=== PATIENT | female | born 1975 | race Two or more races ===

== ENCOUNTER 2016-11-04 18:45 | Observation (INO) | payer BC ==
[~2016-11-04] VITALS: Ht 170.2 cm; Wt 94.1 kg
[~2016-11-04 18:45] MED LIST: NORCO 5/3251 TABLET PO
[2016-11-04 19:48] LABS: BASOPHIL COUNT 0.1 K/uL (0-0.1); EOSINOPHIL COUNT 0.6 K/uL (0-0.3); HEMATOCRIT 39.5 % (36.0-46.0); IMMATURE GRANULOCYTE (%) 0.2 % (0.0-0.7); INSTRUMENT ABS NEUTROPHIL CT 4.3 K/uL; LYMPHOCYTE COUNT 3.5 K/uL (1.0-2.8); MCH 24.4 PG (29.0-34.0); MCHC 30.6 G/DL (30.0-36.0); MCV 79.6 FL (83-99); MEAN PLAT.VOLUME 10.4 uM^3 (9.5-12.4); MONOCYTE (%) 8.6 % (3-12); MONOCYTE COUNT 0.8 K/uL (0-0.8); NEUTROPHIL (%) 46.9 % (45-76); NEUTROPHIL COUNT 4.3 K/uL (1.8-6.4); PLATELET COUNT 288 K/uL (156-360); RBC DIS.WIDTH-CV 15.4 % (11.8-14.6); RBC DIS.WIDTH-SD 44.3 % (39-53); RED BLOOD COUNT 4.96 M/uL (3.80-5.20); WHITE BLOOD COUNT 9.2 K/uL (4.1-10.2)
[2016-11-04 19:57] LABS: CHLORIDE 107 mEq/L (99-109); POTASSIUM 3.9 mEq/L (3.7-5.4); SODIUM 138 mEq/L (136-147)
[2016-11-04 19:59] LABS: GLUCOSE 111 mg/dL (70-99)
[2016-11-04 20:00] LABS: ANION GAP 9 MEQ/L (2-14)
[2016-11-04 20:03] LABS: GFR ESTIMATE (CALCULATED) > 59 mL/min/
[2016-11-04 20:04] LABS: UREA NITROGEN (BUN) 10 mg/dL (9-23)
[2016-11-04] MEDS ORDERED: VENTOLIN HFA18 GM IH (22:18)
[2016-11-04] MEDS ORDERED: NEXIUM20 MG PO (22:19)
[2016-11-04] MEDS ORDERED: FERROUS SULFAT325 MG PO (22:19)
[2016-11-04] MEDS ORDERED: HAIR, SKIN & N1 EAC1 PO (22:19)
[2016-11-04] MEDS ORDERED: ASCORBIC ACID500 M3 PO (22:20)
[2016-11-05 01:00] VITALS: BP 118/72
[2016-11-05 01:32] LABS: ADD MIUA? YES; BILIRUBIN NEGATIVE; BLOOD MODERATE; COLOR COLORLESS ((YELLOW)); GLUCOSE (STRIP) NEGATIVE; KETONES NEGATIVE; LEUKOCYTES NEGATIVE; NITRITE NEGATIVE; PROTEIN (STRIP) NEGATIVE; SPECIFIC GRAVITY 1.004 (1.000-1.030); UROBILINOGEN 0.2 MG/DL (0.2-1.0)
[2016-11-05 01:35] LABS: BACTERIA RARE /HPF; EPITHELIAL CELLS RARE /HPF; MUCUS NONE SEEN /LPF; RED BLOOD CELLS 0-5 /HPF (0-5); UCUL ADDED? NO; WHITE BLOOD CELLS 0-5 /HPF (0-5)
[2016-11-05 03:30] LABS: AMPHETAMINES QUANT VALUE 0 NG/ML; BARBITUATES QUANT VALUE 0 NG/ML; BENZODIAZEPINES QUANT VALUE 0 NG/ML; BENZODIAZEPINES, URINE SCREEN Negative (200 ng/mL); MARIJUANA QUANT VALUE 0 NG/ML; OPIATES QUANTITATIVE VALUE 0 NG/ML; PHENCYCLIDINE QUANT VALUE 0 NG/ML
[2016-11-05 03:38] VITALS: BP 116/68
[2016-11-05 07:08] VITALS: BP 103/66
[2016-11-05] MEDS ORDERED: AMLODIPINE BESYL5 MG PO (09:50)
== END 2016-11-05 10:47 | disposition home or self-care (01) ==
LOC: EME 18:45 → EDOF 23:48 → 5WEST 11-05 00:38
PROVIDERS: Emergency Medicine; Physician Assistant Medical
DX: I16.0 Hypertensive urgency (principal); I10 Essential (primary) hypertension; R05 Cough; T46.4X5A Adverse effect of angiotensin-converting-enzyme inhibitors, initial encounter; J45.909 Unspecified asthma, uncomplicated; K21.9 Gastro-esophageal reflux disease without esophagitis; I45.10 Unspecified right bundle-branch block
CPT/HCPCS: 70450; 80048; 80306 90; 81003; 85025; 93005; 99202; 99281; 99285; G0378; J3010

== ENCOUNTER 2017-07-08 00:30 | Emergency (ER) | payer BC ==
[~2017-07-08] VITALS: Ht 175.3 cm; Wt 89.4 kg
[~2017-07-08 00:30] MED LIST changes: +AMLODIPINE BESYL5 MG PO; +ASCORBIC ACID500 M3 PO; +FERROUS SULFAT325 MG PO; +HAIR, SKIN & N1 EAC1 PO; +NEXIUM20 MG PO; +VENTOLIN HFA18 GM IH
[2017-07-08 01:23] LABS: HEMATOCRIT 43.4 % (36.0-46.0); MCHC 31.1 G/DL (30.0-36.0); MCV 80.2 FL (83-99); MEAN PLAT.VOLUME 10.6 uM^3 (9.5-12.4); PLATELET COUNT 309 K/uL (156-360); RBC DIS.WIDTH-CV 14.1 % (11.8-14.6); RBC DIS.WIDTH-SD 40.7 % (39-53); RED BLOOD COUNT 5.41 M/uL (3.80-5.20); WHITE BLOOD COUNT 9.8 K/uL (4.1-10.2)
[2017-07-08 01:34] LABS: CHLORIDE 106 mEq/L (99-109); POTASSIUM 3.6 mEq/L (3.7-5.4); SODIUM 139 mEq/L (136-147)
[2017-07-08 01:35] LABS: GLUCOSE 125 mg/dL (70-99)
[2017-07-08 01:37] LABS: ANION GAP 12 MEQ/L (2-14)
[2017-07-08 01:39] LABS: GFR ESTIMATE (CALCULATED) > 59 mL/min/
[2017-07-08 01:40] LABS: UREA NITROGEN (BUN) 10 mg/dL (9-23)
[2017-07-08 01:45] LABS: TROP-I INTERPRETATION NEGATIVE; TROPONIN-I < 0.01 ng/mL (0.0-0.30)
[2017-07-08] MEDS ORDERED: PREDNISONE10 MG PO (02:03)
[2017-07-08 03:09] VITALS: BP 135/98
== END 2017-07-08 03:10 | disposition home or self-care (01) ==
LOC: EME 00:30
PROVIDERS: Emergency Medicine
DX: R07.89 Other chest pain (principal); R06.02 Shortness of breath; R22.0 Localized swelling, mass and lump, head; T39.395A Adverse effect of other nonsteroidal anti-inflammatory drugs [NSAID], initial encounter; J45.909 Unspecified asthma, uncomplicated; Z88.6 Allergy status to analgesic agent; K21.9 Gastro-esophageal reflux disease without esophagitis; I10 Essential (primary) hypertension; Z87.442 Personal history of urinary calculi
CPT/HCPCS: 71020; 80048; 84484; 85027; 93005; 94640; 99281; 99284; J7512

== ENCOUNTER 2018-03-12 16:00 | Emergency (ER) | payer OTHER ==
[~2018-03-12] VITALS: Ht 165.1 cm; Wt 86.8 kg
[~2018-03-12 16:00] MED LIST changes: +PREDNISONE10 MG PO
[2018-03-12 17:49] LABS: BASOPHIL (%) 0.3 % (0-1); BASOPHIL COUNT 0.1 K/uL (0-0.1); EOSINOPHIL (%) 0.1 % (0-5); HEMATOCRIT 38.6 % (36.0-46.0); HEMOGLOBIN 12.3 G/DL (11.9-15.5); IMMATURE GRANULOCYTE (%) 0.7 % (0.0-0.7); LYMPHOCYTE (%) 7.8 % (15-42); LYMPHOCYTE COUNT 1.1 K/uL (1.0-2.8); MCH 23.9 PG (29.0-34.0); MCHC 31.9 G/DL (30.0-36.0); MONOCYTE (%) 6.8 % (3-12); NEUTROPHIL (%) 84.3 % (45-76); NEUTROPHIL COUNT 12.3 K/uL (1.8-6.4); PLATELET COUNT 284 K/uL (156-360); RBC DIS.WIDTH-CV 15.8 % (11.8-14.6); RBC DIS.WIDTH-SD 42.7 % (39-53); RED BLOOD COUNT 5.15 M/uL (3.80-5.20); WHITE BLOOD COUNT 14.6 K/uL (4.1-10.2)
[2018-03-12 17:59] LABS: CHLORIDE 100 mEq/L (99-109); POTASSIUM 3.9 mEq/L (3.7-5.4); SODIUM 133 mEq/L (136-147)
[2018-03-12 18:01] LABS: GLUCOSE 132 mg/dL (70-99)
[2018-03-12 18:05] LABS: CREATININE 0.8 mg/dL (0.6-1.3); GFR ESTIMATE (CALCULATED) > 59 mL/min/
[2018-03-12 18:06] LABS: UREA NITROGEN (BUN) 5 mg/dL (9-23)
[2018-03-12 18:49] LABS: APPEARANCE SL.HAZY ((CLEAR)); BILIRUBIN NEGATIVE; BLOOD SMALL; COLOR YELLOW ((YELLOW)); GLUCOSE (STRIP) NEGATIVE; KETONES NEGATIVE; LEUKOCYTES TRACE; NITRITE NEGATIVE; PROTEIN (STRIP) 100
[2018-03-12 18:55] LABS: BACTERIA RARE /HPF; CALCIUM OXALATE CRYSTALS 1+ /HPF; EPITHELIAL CELLS 1+ /HPF; MUCUS NONE SEEN /LPF; RED BLOOD CELLS 0-5 /HPF (0-5); UCUL ADDED? YES
[2018-03-12] MEDS ORDERED: AUGMENTIN500 MG PO (19:33)
[2018-03-12] MEDS ORDERED: AZITHROMYCIN500 M1 PO (19:33)
[2018-03-12 21:45] VITALS: BP 125/80
== END 2018-03-12 21:56 | disposition home or self-care (01) ==
LOC: EME 16:00
PROVIDERS: Emergency Medicine
DX: J18.9 Pneumonia, unspecified organism (principal); I10 Essential (primary) hypertension; E11.9 Type 2 diabetes mellitus without complications; K21.9 Gastro-esophageal reflux disease without esophagitis; J45.909 Unspecified asthma, uncomplicated; G43.909 Migraine, unspecified, not intractable, without status migrainosus; Z87.442 Personal history of urinary calculi; Z88.6 Allergy status to analgesic agent
CPT/HCPCS: 71046; 80048; 81003; 82010; 82948; 83605; 85025; 87040; 87086; 93005; 99281; 99285; J7030